=== PATIENT | male | born 1995 | race Caucasian/White ===

== ENCOUNTER 2016-04-05 11:57 | Emergency (ER) | payer OTHER ==
[~2016-04-05] VITALS: Ht 180.3 cm; Wt 65.4 kg
[~2016-04-05 11:57] MED LIST: ACET-1256 PO; ALBUAER2 INH
[2016-04-05 12:23] VITALS: TEMP 36.6; Ht 180.3 cm; Wt 65.4 kg
[2016-04-05] MEDS ORDERED: ONDANSETRON INJ 2 MG/ML 2 ML VIAL IV STA (12:52)
[2016-04-05] MEDS ORDERED: SODIUM CHLORIDE 0.9% 500ML 500 ML IV STA (12:52)
[2016-04-05] MEDS ORDERED: SODIUM CHLORIDE 0.9% 1000ML 1,000 ML IV STA (12:52)
[2016-04-05] MEDS ORDERED: MoRPHine SULFATE 4 MG/ML 1 ML CARP\\VIAL IV STA (12:52)
[2016-04-05 13:00] LABS: BASO % 0.3 %; BASO ABS # 0.02 K/uL (0-0.2); COMPLETE YES; HEMATOCRIT 49.2 % (42-52); IG% 0.2 %; LYMPH % 20.4 %; LYMPH ABS # 1.32 K/uL (1.2-3.4); MEAN CELL VOLUME 83.2 fL (80-100); MEAN CORPUSCULAR HEMOGLOBIN 30.1 pg (25-34); MEAN CORPUSCULAR HGB CONC 36.2 g/dl (32-36); MONO % 11.9 %; NEUT % 63.2 %; PLATELET COUNT 207 K/uL (130-400); RED BLOOD COUNT 5.91 M/uL (4.7-6.1); WHITE BLOOD COUNT 6.46 K/uL (4.8-10.8)
--- NOTE | 2016-04-05 13:06 | EMERGENCY ROOM VISIT NOTE ---
History Report prepared by Raphael: Janene Pierson Under the Supervision of: Dr. Fransisca Adhikari M.D. First contact with patient: 12:44 Chief Complaint: ABDOMINAL PAIN Stated Complaint: SEVERE STOMACH CRAMPING/PAIN, RECTAL BLEEDING Nursing Triage Summary: abd pain midline sharp for 3 days lasting about 5 mins each time and returns diarrhea History of Present Illness The patient is a 20 year old male who presents to the Emergency Room with complaints of central abdominal pain that began about 3 days ago. He describes the pain as sharp. He also complains of diarrhea. He has had 2 episodes of diarrhea a day for the past 3 days. He notes that he has not been able to eat in 2 days because eating worsens his pain. He has not noticed any blood in his stool recently, but notes he's had blood in his stool in the past related to hemorrhoids. He has never followed up with a GI doctor or had a colonoscopy. Currently the patient also complains of some cold-like symptoms including a productive cough and some shortness of breath in the morning when he gets up. His mother also has respiratory symptoms but he does not have any known close contacts with GI symptoms. Denies fever, vomiting, or other complaints. He is a smoker but does not drink much alcohol. Denies any recent recreational drug use. Source of History: patient Onset: 3 days ago Position: abdomen (central ) Quality: sharp Timing: other (persistent) Associated Symptoms: + diarrhea, No fevers, No vomiting Review of Systems See HPI for pertinent positives & negatives. A total of 10 systems reviewed and were otherwise negative. Past Medical & Surgical Medical Problems: (1) Anal Fissure (2) History of asthma (3) Tobacco Use Disorder Surgical Problems: (1) No significant past surgical history Family History Asthma FH: cancer FH: lung disease Hypertension Kidney disease Kidney stones Social History Smoking Status: Current Every Day Smoker Alcohol Use: occasionally Drug Use: marijuana Marital Status: single Housing Status: lives with family Occupation Status: employed Current/Historical Medications Scheduled Albuterol (Ventolin Hfa), 1 PUFF PO DAILY Albuterol Sulf (Albuterol Sulfate), 3 ML PO DIRECTED Docusate Sodium (Colace), 100 MG PO BID Allergies Coded Allergies: Tramadol (Verified Allergy, Unknown, ., 04/07/16) Physical Exam Vital Signs Date Time Temp Pulse Resp B/P Pulse Ox O2 Delivery O2 Flow Rate FiO2 2/14/17 14:56 72 16 115/72 97 Room Air 04/05/16 14:06 70 18 103/54 99 Room Air 04/05/16 13:22 68 04/05/16 13:11 83 18 120/68 98 Room Air 04/05/16 12:23 36.6 110 20 102/70 97 Room Air Physical Exam Vital signs reviewed. General: Generally well-appearing 20 year old male, in no significant distress, smells of tobacco. HEENT: No scleral icterus, PERRLA, neck supple. Atraumatic. Cardiovascular: Regular rate and rhythm, no extra sounds. Pulmonary: Clear to auscultation bilaterally, normal work of breathing. Abdomen: Soft, mild tenderness to the suprapubic region, no rebound or guarding , no tympani to percussion, nondistended, positive bowel sounds. Musculoskeletal: Atraumatic, no peripheral edema. Neurologic: Patient awake alert and oriented x 3 Skin: Warm, dry, no rash Medical Decision & Procedures ER Provider Diagnostic Interpretation: X-ray results as stated below per interpretation by me and the radiologist: PA CHEST WITH ABDOMINAL SERIES CLINICAL HISTORY: Generalized abdominal pain. Diarrhea. FINDINGS: A PA chest radiograph is compared to study dated 12/15/2013. The cardiomediastinal silhouette is unremarkable. The lungs and pleural spaces are clear. No pneumothorax is seen. The bony thorax is grossly intact. Supine and erect abdominal radiographs are obtained. No prior studies are available for comparison at the time of dictation. There is a nonobstructed abdominal bowel gas pattern. No evidence of intraperitoneal free air is seen. Air-fluid levels are noted in the colon. No abnormal abdominal calcifications are identified. The lumbosacral spine and bony pelvis appear intact. IMPRESSION: 1. No active disease in the chest. 2. Nonobstructed abdominal bowel gas pattern. 3. Scattered air-fluid levels are noted in the colon. This is consistent with the reported clinical history of a diarrheal illness. Electronically signed by: Rafael Polo M.D. 04/05/2016 1:48 PM Dictated Date/Time: 04/05/2016 1:47 PM Laboratory Results 04/05/16 12:45 Red Blood Count 5.91, Mean Corpuscular Volume 83.2, Mean Corpuscular Hemoglobin 30.1, Mean Corpuscular Hemoglobin Concent 36.2, Mean Platelet Volume 11.0, Neutrophils (%) (Auto) 63.2, Lymphocytes (%) (Auto) 20.4, Monocytes (%) (Auto) 11.9, Eosinophils (%) (Auto) 4.0, Basophils (%) (Auto) 0.3, Neutrophils # (Auto ) 4.08, Lymphocytes # (Auto) 1.32, Monocytes # (Auto) 0.77, Eosinophils # (Auto ) 0.26, Basophils # (Auto) 0.02 04/05/16 12:45 Test 04/05/16 12:45 04/05/16 14:00 White Blood Count 6.46 K/uL (4.8-10.8) Red Blood Count 5.91 M/uL (4.7-6.1) Hemoglobin 17.8 g/dL (14.0-18.0) Hematocrit 49.2 % (42-52) Mean Corpuscular Volume 83.2 fL (80-100) Mean Corpuscular Hemoglobin 30.1 pg (25-34) Mean Corpuscular Hemoglobin Concent 36.2 g/dl (32-36) Platelet Count 207 K/uL (130-400) Mean Platelet Volume 11.0 fL (7.4-10.4) Neutrophils (%) (Auto) 63.2 % Lymphocytes (%) (Auto) 20.4 % Monocytes (%) (Auto) 11.9 % Eosinophils (%) (Auto) 4.0 % Basophils (%) (Auto) 0.3 % Neutrophils # (Auto) 4.08 K/uL (1.4-6.5) Lymphocytes # (Auto) 1.32 K/uL (1.2-3.4) Monocytes # (Auto) 0.77 K/uL (0.11-0.59) Eosinophils # (Auto) 0.26 K/uL (0-0.5) Basophils # (Auto) 0.02 K/uL (0-0.2) RDW Standard Deviation 40.7 fL (36.4-46.3) RDW Coefficient of Variation 13.5 % (11.5-14.5) Immature Granulocyte % (Auto) 0.2 % Immature Granulocyte # (Auto) 0.01 K/uL (0.00-0.02) Anion Gap 9.0 mmol/L (3-11) Est Creatinine Clear Calc Drug Dose 90.1 ml/min Estimated GFR () 99.6 Estimated GFR (Non- 85.9 BUN/Creatinine Ratio 7.1 (10-20) Calcium Level 8.7 mg/dl (8.5-10.1) Total Bilirubin 0.3 mg/dl (0.2-1) Direct Bilirubin 0.1 mg/dl (0-0.2) Aspartate Amino Transf (AST/SGOT) 16 U/L (15-37) Alanine Aminotransferase (ALT/SGPT) 24 U/L (12-78) Alkaline Phosphatase 104 U/L (45-117) Total Protein 7.4 gm/dl (6.4-8.2) Albumin 3.6 gm/dl (3.4-5.0) Urine Color YELLOW Urine Appearance CLEAR (CLEAR) Urine pH 5.5 (4.5-7.5) Urine Specific [place] 1.017 (1.000-1.030) Urine Protein NEG (NEG) Urine Glucose (UA) NEG (NEG) Urine Ketones NEG (NEG) Urine Occult Blood NEG (NEG) Urine Nitrite NEG (NEG) Urine Bilirubin NEG (NEG) Urine Urobilinogen NEG (NEG) Urine Leukocyte Esterase NEG (NEG) Laboratory results per my review. Medications Administered Medications (Trade) Dose Ordered Sig/Dyana Route Start Time Stop Time Status Last Admin Dose Admin Sodium Chloride 500 ml @ 999 mls/hr Q31M STAT IV 04/05/16 12:52 04/05/16 13:22 DC 04/05/16 12:55 999 MLS/HR Sodium Chloride (Nss 1000ml) 1,000 ml @ 125 mls/hr Q8H STAT IV 04/05/16 12:52 04/05/16 16:07 DC 04/05/16 13:08 125 MLS/HR Morphine Sulfate (MoRPHine SULFATE INJ) 4 mg NOW STAT IV 04/05/16 12:52 04/05/16 12:54 DC 04/05/16 13:07 4 MG Ondansetron HCl (Zofran Inj) 4 mg NOW STAT IV 04/05/16 12:52 04/05/16 12:54 DC 04/05/16 13:07 4 MG ED Course 1249: The patient was evaluated in room C12. A complete history and physical examination was performed. 1252: Ordered Zofran Inj 4 mg IV, Morphine Sulfate 4 mg IV, NSS 1000 ml @ 125 mls/hr IV, NSS 500 ml @ 999 mls/hr IV. 1515: Upon reevaluation, the patient appeared to have improvement of his symptoms. I discussed findings with the patient. He verbalized agreement of the treatment plan. The patient was discharged home. Medical Decision Differential diagnosis: Etiologies such as appendicitis, diverticulitis, PUD, biliary pathology, UTI, pancreatitis, obstruction, mesenteric ischemia, aortic pathology, infections, inflammatory bowel disease, renal colic, as well as others were entertained. This patient was evaluated and appeared to be in some discomfort. IV access was obtained and laboratory work was drawn. The patient was placed on the casket inspector that revealed normal sinus rhythm. He was hydrated with normal saline solution, given IV morphine and Zofran. Patient's laboratory work is fairly unrevealing. White blood to count is normal, H&H is stable. Patient was able to provide a stool specimen which is negative for C. difficile. Formal cultures are pending. Patient was informed of the findings and was encouraged to continue plenty of clear fluids. He will advance his diet slowly as tolerated. Patient will follow-up with primary care physician and return to the ER for worsening of symptoms or any medical concerns. Impression Primary Impression: Abdominal cramping, bilateral lower quadrant Additional Impression: Diarrhea Scribe Attestation The scribe's documentation has been prepared under my direction and personally reviewed by me in its entirety. I confirm that the note above accurately reflects all work, treatment, procedures, and medical decision making performed by me. Departure Information Dispostion Home / Self-Care Referrals Michael Alanis M.D. (PCP) Patient Instructions My [facility] Additional Instructions Diagnosis: Diarrhea, lower abdominal cramping Increase clear fluids such as water or Gatorade. Tylenol 650 mg every 6 hours as needed for pain. Avoid dairy, greasy or spicy foods. Follow-up with your physician this week for reevaluation if symptoms persist. Return to the ER for fever, blood in the stools, worsening belly pain or any medical concerns. Problem Qualifiers Additional Impression: Diarrhea Diarrhea type: presumed infectious Qualified Codes: A09 - Infectious gastroenteritis and colitis, unspecified
[2016-04-05 13:20] LABS: BUN/CREATININE RATIO 7.1 (10-20); CALCIUM 8.7 mg/dl (8.5-10.1); CREATININE 1.2 mg/dl (0.60-1.40)
--- NOTE | 2016-04-05 13:50 | DIAGNOSTIC IMAGING REPORT ---
PA CHEST WITH ABDOMINAL SERIES CLINICAL HISTORY: Generalized abdominal pain. Diarrhea. FINDINGS: A PA chest radiograph is compared to study dated 12/15/2013. The cardiomediastinal silhouette is unremarkable. The lungs and pleural spaces are clear. No pneumothorax is seen. The bony thorax is grossly intact. Supine and erect abdominal radiographs are obtained. No prior studies are available for comparison at the time of dictation. There is a nonobstructed abdominal bowel gas pattern. No evidence of intraperitoneal free air is seen. Air-fluid levels are noted in the colon. No abnormal abdominal calcifications are identified. The lumbosacral spine and bony pelvis appear intact. IMPRESSION: 1. No active disease in the chest. 2. Nonobstructed abdominal bowel gas pattern. 3. Scattered air-fluid levels are noted in the colon. This is consistent with the reported clinical history of a diarrheal illness. Electronically signed by: Rafael Polo M.D. 04/05/2016 1:48 PM Dictated Date/Time: 04/05/2016 1:47 PM
[2016-04-05 14:25] LABS: URINE APPEARANCE CLEAR (CLEAR); URINE BILIRUBIN NEG (NEG); URINE COLOR YELLOW; URINE NITRITE NEG (NEG); URINE PH 5.5 (4.5-7.5); URINE SPECIFIC GRAVITY 1.017 (1.000-1.030); UROBILINOGEN NEG (NEG); ZZUR CULT IF INDIC CLEAN CATCH NO
[2016-04-05 14:35] LABS: MANUAL MICROSCOPIC REQUIRED? NO; REVIEW REQ? NO
[2016-04-05 14:56] VITALS: BP 115/72; PULSE 72; O2SAT 97
== END 2016-04-05 15:27 | disposition home or self-care (01) ==
LOC: C.EDB 11:59 → C.EDC 15:27
DX: R10.31 Right lower quadrant pain (principal); R10.32 Left lower quadrant pain; R19.7 Diarrhea, unspecified; J45.909 Unspecified asthma, uncomplicated; F17.200 Nicotine dependence, unspecified, uncomplicated; Z88.8 Allergy status to other drugs, medicaments and biological substances; Z80.9 Family history of malignant neoplasm, unspecified; Z82.49 Family history of ischemic heart disease and other diseases of the circulatory system; Z84.1 Family history of disorders of kidney and ureter

== ENCOUNTER 2016-04-07 19:40 | Emergency (ER) | payer OTHER ==
[~2016-04-07] VITALS: Ht 180.3 cm; Wt 69.2 kg
[2016-04-07 19:52] VITALS: Ht 180.3 cm; Wt 69.2 kg
[2016-04-07] MEDS ORDERED: ALBINS PO (19:59)
[2016-04-07] MEDS ORDERED: PRVHFAIN PO (19:59)
--- NOTE | 2016-04-07 20:24 | EMERGENCY ROOM VISIT NOTE ---
History Report prepared by Raphael: Mami Mccloud Under the Supervision of: Dr. Dk Hargrove M.D. First contact with patient: 20:15 Chief Complaint: ABDOMINAL PAIN Stated Complaint: ABD PAIN Nursing Triage Summary: Pt arrives by ALS from home for c/o of lower abd pain, constipation. Reports last BM 5 days ago. Also reports dark urine and productive cough with green sputum. Pt seen here several days ago for same complaint. Pt states "I wasn't completely honest last time. I was using Speed for about a month and I quit. I think that is the whole issue with my stomach". Last used 6 days ago. denies other drugs History of Present Illness The patient is a 20 year old male who presents to the Emergency Room with complaints of lower abdominal pain worsening earlier today. The patient states that he has been constipated for the last 5 days and been unable to have a bowel movement. He states that today the abdominal pain worsened causing him to come to the ED. He currently rates his pain as a 10/10 in severity. The patient states that he smokes speed and the most recent time was about 6 days ago. The patient states that he has not been able to eat or drink normally due to it worsening his pain and causing nausea and vomiting. The patient states that he also smokes marijuana but denies any other drug use. The patient denies any urinary symptoms. Source of History: patient Onset: earlier today Position: abdomen (lower) Symptom Intensity: 10/10 Timing: worsening Modifying Factors (Worsening): eating, drinking Associated Symptoms: + nausea, + vomiting, No urinary symptoms Review of Systems All systems have been listed, reviewed, and are negative other than those previously mentioned. Please see Additional Medical History Sheet. Past Medical & Surgical Medical Problems: (1) Anal Fissure (2) History of asthma (3) Tobacco Use Disorder Surgical Problems: (1) No significant past surgical history Family History Asthma FH: cancer FH: lung disease Hypertension Kidney disease Kidney stones Social History Smoking Status: Current Every Day Smoker Alcohol Use: occasionally Drug Use: marijuana Marital Status: single Housing Status: lives with family Occupation Status: employed Current/Historical Medications Scheduled Albuterol (Ventolin Hfa), 1 PUFF PO DAILY Albuterol Sulf (Albuterol Sulfate), 3 ML PO DIRECTED Docusate Sodium (Colace), 100 MG PO BID Allergies Coded Allergies: Tramadol (Verified Allergy, Unknown, ., 04/07/16) Physical Exam Vital Signs Date Time Temp Pulse Resp B/P Pulse Ox O2 Delivery O2 Flow Rate FiO2 04/07/16 22:12 36.4 90 16 131/74 97 04/07/16 20:53 71 16 121/72 98 Room Air 04/07/16 20:23 79 04/07/16 19:52 36.8 87 16 133/75 98 Room Air Physical Exam GENERAL: Patient awake, alert, oriented x 3. Patient appears to be in moderate distress. Patient follows commands. Patient does not appear toxic. Patient is adequately hydrated and well-nourished. SKIN: No erythema, pallor, cyanosis or rash HEENT: Normal head, pupils equal, reactive to light and accommodation. Oral cavity and posterior pharynx appear normal. Neck: Without adenopathy, no neck vein distention. LUNGS: Clear to auscultation. No wheezes, no rales, no rhonchi. HEART: No murmurs. No gallops. No rubs ABDOMEN: Generalized tenderness, bowel sounds present. No masses, no rebound, no hepatomegaly or splenomegaly. EXTREMITIES: No signs of trauma. No pedal or pretibial edema. No calf or thigh tenderness. NEUROLOGIC: Cranial nerves II-XII within normal limits. No gross motor sensory function deficits. RECTAL: No stool, no hemorrhoids, no mass, no impaction. Medical Decision & Procedures Laboratory Results 04/07/16 19:15 04/07/16 19:15 Test 04/07/16 19:15 04/07/16 20:10 Red Blood Count 5.85 M/uL (4.7-6.1) Mean Corpuscular Volume 79.8 fL (80-100) Mean Corpuscular Hemoglobin 29.1 pg (25-34) Mean Corpuscular Hemoglobin Concent 36.4 g/dl (32-36) RDW Standard Deviation 38.0 fL (36.4-46.3) RDW Coefficient of Variation 13.1 % (11.5-14.5) Mean Platelet Volume 10.8 fL (7.4-10.4) Anion Gap 10.0 mmol/L (3-11) Est Creatinine Clear Calc Drug Dose 114.4 ml/min Estimated GFR () 124.1 Estimated GFR (Non- 107.1 BUN/Creatinine Ratio 6.6 (10-20) Calcium Level 8.7 mg/dl (8.5-10.1) Lipase 124 U/L (73-393) Urine Color YELLOW Urine Appearance CLEAR (CLEAR) Urine pH 7.5 (4.5-7.5) Urine Specific [place] 1.009 (1.000-1.030) Urine Protein NEG (NEG) Urine Glucose (UA) NEG (NEG) Urine Ketones NEG (NEG) Urine Occult Blood NEG (NEG) Urine Nitrite NEG (NEG) Urine Bilirubin NEG (NEG) Urine Urobilinogen NEG (NEG) Urine Leukocyte Esterase NEG (NEG) Laboratory results as stated above per my review. Medications Administered Medications (Trade) Dose Ordered Sig/Dyana Route Start Time Stop Time Status Last Admin Dose Admin Morphine Sulfate (MoRPHine SULFATE INJ) 6 mg Q1H PRN IV 04/07/16 20:30 04/07/16 22:36 DC 04/07/16 20:51 6 MG Ondansetron HCl (Zofran Inj) 4 mg Q1HWA PRN IV 04/07/16 20:30 04/07/16 22:36 DC 04/07/16 20:50 4 MG ED Course 2015: Past medical records reviewed. The patient was evaluated in room B11A. A complete history and physical examination was performed. 2030: Ordered Zofran Inj 4 mg IV, Morphine Sulfate 6 mg IV. 2142: The nursing staff informed me that after an enema the patient was to have a relief of his symptoms. 3: Upon reevaluation, the patient appeared to have improvement of his symptoms. I discussed today's findings with him. He verbalized agreement of the treatment plan. The patient was discharged home. Medical Decision Nurses notes reviewed. Medical history sheet reviewed. Differential diagnosis includes but is not limited to: medication complication, constipation, impaction , gastroenteritis, pancreatitis. Labs were obtained. Please see above. The patient had a soapsuds enema with excellent relief. The patient felt 100% better. The patient will be started on Colace. The patient was strongly encouraged to avoid using any illicit drugs. He was also encouraged to stop smoking. Impression Primary Impression: Constipation Scribe Attestation The scribe's documentation has been prepared under my direction and personally reviewed by me in its entirety. I confirm that the note above accurately reflects all work, treatment, procedures, and medical decision making performed by me. Departure Information Dispostion Home / Self-Care Prescriptions Docusate Sodium (COLACE) 100 Mg Cap 100 MG PO BID, #30 CAP Prov: Dk Hargrove M.D. 04/07/16 Referrals Michael Alanis M.D. (PCP) Forms HOME CARE DOCUMENTATION FORM, IMPORTANT VISIT INFORMATION Patient Instructions My [facility] Additional Instructions Do not use any medications other than those prescribed. 1 Colace twice a day. Drink extra fluids. STOP SMOKING
[2016-04-07 20:27] LABS: HEMATOCRIT 46.7 % (42-52); MEAN CELL VOLUME 79.8 fL (80-100); MEAN CORPUSCULAR HEMOGLOBIN 29.1 pg (25-34); MEAN CORPUSCULAR HGB CONC 36.4 g/dl (32-36); MEAN PLATELET VOLUME 10.8 fL (7.4-10.4); PLATELET COUNT 206 K/uL (130-400); RED BLOOD COUNT 5.85 M/uL (4.7-6.1); WHITE BLOOD COUNT 10.23 K/uL (4.8-10.8)
[2016-04-07 20:28] LABS: URINE APPEARANCE CLEAR (CLEAR); URINE BILIRUBIN NEG (NEG); URINE COLOR YELLOW; URINE NITRITE NEG (NEG); URINE PH 7.5 (4.5-7.5); URINE SPECIFIC GRAVITY 1.009 (1.000-1.030); UROBILINOGEN NEG (NEG); ZZUR CULT IF INDIC CLEAN CATCH NO
[2016-04-07] MEDS ORDERED: MoRPHine SULFATE 10 MG/ML CARP/VIAL IV PRN (20:30)
[2016-04-07] MEDS ORDERED: ONDANSETRON INJ 2 MG/ML 2 ML VIAL IV PRN (20:30)
[2016-04-07 20:32] LABS: CALCIUM 8.7 mg/dl (8.5-10.1); POTASSIUM 3.5 mmol/L (3.5-5.1)
[2016-04-07 20:34] LABS: BUN/CREATININE RATIO 6.6 (10-20)
[2016-04-07 21:00] LABS: MANUAL MICROSCOPIC REQUIRED? NO; REVIEW REQ? NO
[2016-04-07] MEDS ORDERED: DOCU-94 PO (21:52)
[2016-04-07 22:12] VITALS: BP 131/74; PULSE 90; TEMP 36.4; O2SAT 97
== END 2016-04-07 22:18 | disposition home or self-care (01) ==
LOC: EDBD 19:40 → C.EDB 19:41
DX: K59.00 Constipation, unspecified (principal); F12.10 Cannabis abuse, uncomplicated; J45.909 Unspecified asthma, uncomplicated; F17.210 Nicotine dependence, cigarettes, uncomplicated; Z79.899 Other long term (current) drug therapy

== ENCOUNTER 2017-09-15 15:03 | Emergency (ER) | payer OTHER ==
[~2017-09-15] VITALS: Ht 180.3 cm; Wt 66.6 kg
[~2017-09-15 15:03] MED LIST changes: -ACET-1256 PO; +ACET300T3 PO; +ALBINS NEB; -ALBUAER2 INH; +PNC/500 PO; +PRED20TA PO; +PRVHFAIN INH
[2017-09-15 15:17] VITALS: TEMP 36.7; Ht 180.3 cm; Wt 66.6 kg
[2017-09-15] MEDS ORDERED: CEPH500C PO (15:46)
[2017-09-15] MEDS ORDERED: ELMCR EXT (15:46)
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
[2017-09-15 15:55] VITALS: BP 121/78; PULSE 72; O2SAT 99
== END 2017-09-15 15:55 | disposition home or self-care (01) ==
LOC: C.EDB 15:04 → C.EDD 15:55
DX: T23.171A Burn of first degree of right wrist, initial encounter (principal); X17.XXXA Contact with hot engines, machinery and tools, initial encounter; B86 Scabies; F17.210 Nicotine dependence, cigarettes, uncomplicated